=== PATIENT | female | born 1980 | race Caucasian/White ===

== ENCOUNTER 2016-06-03 10:26 | Outpatient (CLI) | payer OTHER | END 2016-06-03 10:27 | disposition home or self-care (01) | DX: R05 Cough (principal) ==

== ENCOUNTER 2016-07-02 09:38 | Outpatient (CLI) | payer OTHER | END 2016-07-02 09:39 | DX: N94.6 Dysmenorrhea, unspecified (principal); E66.01 Morbid (severe) obesity due to excess calories ==